=== PATIENT | male | born 1990 | race Caucasian/White ===

== ENCOUNTER 2023-04-24 13:27 | Emergency (ER) | payer OTHER ==
[2023-04-24 13:39] VITALS: PULSE 78; RESP 16; TEMP 98.7; BMI 32.8
[2023-04-24 17:25] VITALS: BP 146/94
== END 2023-04-24 17:25 | disposition home or self-care (01) ==
LOC: JER 13:27 → JERFT 13:27
DX: M54.2 Cervicalgia (principal); R59.0 Localized enlarged lymph nodes
CPT/HCPCS: 99282-25